=== PATIENT | female | born 2000 | race Caucasian/White ===

== ENCOUNTER 2020-08-28 22:12 | Emergency (ER) | payer OTHER ==
[~2020-08-28] VITALS: Ht 170.2 cm; Wt 75.1 kg
[2020-08-28] MEDS ORDERED: KETOROLAC TROMETHAMINE 10 MG TAB PO ONE (23:00)
[2020-08-28] MEDS ORDERED: ONDANSETRON 4 MG ORAL DISINTEGRATING TAB PO ONE (23:00)
--- NOTE | 2020-08-28 23:08 | REPVR ---
PROCEDURE INFORMATION: Exam: CT Cervical Spine Without Contrast Exam date and time: 08/28/2020 10:46 PM Age: 19 years old Clinical indication: Injury or trauma; Fall; Blunt trauma; Additional info: Head injury TECHNIQUE: Imaging protocol: Computed tomography images of the cervical spine without contrast. Radiation optimization: All CT scans at this facility use at least one of these dose optimization techniques: automated exposure control; mA and/or kV adjustment per patient size (includes targeted exams where dose is matched to clinical indication); or iterative reconstruction. COMPARISON: No relevant prior studies available. FINDINGS: Bones/joints: Mild levoconvex curvature. Vertebral body height and AP alignment is preserved. No acute cervical spine fracture. Discs/Spinal canal/Neural foramina: No definite significant central canal stenosis within limitations of technique. Thyroid: Heterogeneous thyroid gland. Lungs: Lung apices are normal. Pleural space: No visible pneumothorax. Soft tissues: Unremarkable. IMPRESSION: No acute cervical spine fracture. Electronically signed by: Jerome Larry On 08/28/2020 23:07:58 PM
--- NOTE | 2020-08-28 23:09 | REPVR ---
PROCEDURE INFORMATION: Exam: CT Head Without Contrast Exam date and time: 08/28/2020 10:46 PM Age: 19 years old Clinical indication: Injury or trauma; Fall; Concussion/head injury; Consciousness not specified TECHNIQUE: Imaging protocol: Computed tomography of the head without contrast. Radiation optimization: All CT scans at this facility use at least one of these dose optimization techniques: automated exposure control; mA and/or kV adjustment per patient size (includes targeted exams where dose is matched to clinical indication); or iterative reconstruction. COMPARISON: No relevant prior studies available. FINDINGS: Brain: Normal. No hemorrhage. Unremarkable white matter. No mass effect. Cerebral ventricles: No ventriculomegaly. Bones/joints: Unremarkable. No acute fracture. Paranasal sinuses: Mild paranasal sinus disease. Mastoid air cells: Mild partial opacification of the right mastoid air cells. Soft tissues: Unremarkable. IMPRESSION: No acute intracranial abnormality. Electronically signed by: Jerome Larry On 08/28/2020 23:09:41 PM
--- NOTE | 2020-08-29 00:02 | REPVR ---
PROCEDURE INFORMATION: Exam: XR Right Hip with Pelvis when Performed Exam date and time: 08/28/2020 11:52 PM Age: 19 years old Clinical indication: Hip pain; Right hip; Additional info: Fell skiing TECHNIQUE: Imaging protocol: XR Right hip with pelvis when performed. Views: 2 or 3 views. COMPARISON: No relevant prior studies available. FINDINGS: Bones/joints: Unremarkable. No acute fracture. Soft tissues: Unremarkable. IMPRESSION: No acute findings. Electronically signed by: Jerome Larry On 08/29/2020 00:02:00 AM
[2020-08-29 00:33] VITALS: BP 117/69
== END 2020-08-29 00:38 | disposition home or self-care (01) ==
LOC: M ED 22:12
DX: S06.0X0A Concussion without loss of consciousness, initial encounter (principal); V00.321A Fall from snow-skis, initial encounter; Y92.89 Other specified places as the place of occurrence of the external cause; Y93.23 Activity, snow (alpine) (downhill) skiing, snowboarding, sledding, tobogganing and snow tubing; Y99.8 Other external cause status; M54.2 Cervicalgia; M25.551 Pain in right hip
CPT/HCPCS: 70450; 72125; 73502; 99283; Q0162

== ENCOUNTER 2020-10-04 16:31 | Emergency (ER) | payer OTHER ==
[~2020-10-04] VITALS: Ht 170.2 cm; Wt 75.8 kg
[2020-10-04 16:32] VITALS: BP 125/86
[2020-10-04] MEDS ORDERED: valACYclovir HCL 500 MG TAB PO ONE (17:30)
[2020-10-04] MEDS ORDERED: VALT1TAB PO (17:31)
== END 2020-10-04 17:44 | disposition home or self-care (01) ==
LOC: M ED 16:31
DX: A60.09 Herpesviral infection of other urogenital tract (principal); Z91.040 Latex allergy status

== ENCOUNTER 2020-12-29 12:27 | Emergency (ER) | payer OTHER ==
[~2020-12-29] VITALS: Ht 170.2 cm; Wt 73.2 kg
[~2020-12-29 12:27] MED LIST: VALT1TAB PO
[2020-12-29 13:14] LABS: HEMATOCRIT 42.5 % (36.0-47.0); HEMOGLOBIN 14.2 g/dl (12.0-15.5); MEAN CORPUSCULAR HEMOGLOBIN 30.3 pg (27.0-33.0); MEAN CORPUSCULAR HGB CONC 33.4 g/dl (32.0-36.5); MEAN CORPUSCULAR VOLUME 90.6 fl (80.0-96.0); PLATELET COUNT, AUTOMATED 225 10^3/uL (150-450); RED BLOOD COUNT 4.69 10^6/uL (4.00-5.40); WHITE BLOOD COUNT 14.9 10^3/uL (4.0-10.0)
[2020-12-29] MEDS ORDERED: SPIR100T3 PO (13:22)
[2020-12-29] MEDS ORDERED: KETOROLAC 30 MG/ML 1ML VIAL IV ONE (14:10)
[2020-12-29] MEDS ORDERED: NS 1,000 ML IV ONE (14:10)
[2020-12-29 14:33] LABS: ALBUMIN 3.6 GM/DL (3.2-5.2); BILIRUBIN,DIRECT 0.3 MG/DL (0.0-0.2); BILIRUBIN,TOTAL 1.5 MG/DL (0.2-1.0)
[2020-12-29] MEDS ORDERED: ZOFR4TAB16 PO (15:47)
[2020-12-29 16:08] VITALS: BP 128/72
== END 2020-12-29 16:09 | disposition home or self-care (01) ==
LOC: EDBD 12:27 → M ED 12:27
DX: E86.0 Dehydration (principal); J02.9 Acute pharyngitis, unspecified; T50.Z95A Adverse effect of other vaccines and biological substances, initial encounter; X58.XXXA Exposure to other specified factors, initial encounter; Y92.89 Other specified places as the place of occurrence of the external cause; Z91.040 Latex allergy status
CPT/HCPCS: 80047; 80076; 81001; 83690; 84702; 85027; 87086; 87798; 96361; 96374; 99284; J1885

== ENCOUNTER 2021-05-04 09:46 | Emergency (ER) | payer OTHER ==
[~2021-05-04] VITALS: Ht 167.6 cm; Wt 77.3 kg
[~2021-05-04 09:46] MED LIST changes: +SPIR100T3 PO; +ZOFR4TAB16 PO
[2021-05-04] MEDS ORDERED: ONDANSETRON 4MG/2ML VIAL IV ONE (12:35)
[2021-05-04] MEDS ORDERED: KETOROLAC 30 MG/ML 1ML VIAL IV ONE (12:35)
[2021-05-04] MEDS ORDERED: NS 1,000 ML IV ONE (12:35)
[2021-05-04 13:15] LABS: BASO % 0.3 % (0.0-1.0); EOS % 0.3 % (0.0-3.0); HEMATOCRIT 40.6 % (36.0-47.0); HEMOGLOBIN 14.1 g/dl (12.0-15.5); LYMPH # 1.1 10^3/uL (1.5-5.0); LYMPH % 10.4 % (24.0-44.0); MEAN CORPUSCULAR HEMOGLOBIN 30.5 pg (27.0-33.0); MEAN CORPUSCULAR HGB CONC 34.7 g/dl (32.0-36.5); MEAN CORPUSCULAR VOLUME 87.7 fl (80.0-96.0); MONO # 0.5 10^3/uL (0.0-0.8); NEUTROPHILS # 8.7 10^3/uL (1.5-8.5); NEUTROPHILS % 83.6 % (36.0-66.0); PLATELET COUNT, AUTOMATED 303 10^3/uL (150-450); RED BLOOD COUNT 4.63 10^6/uL (4.00-5.40); WHITE BLOOD COUNT 10.5 10^3/uL (4.0-10.0)
[2021-05-04] MEDS ORDERED: ISOVUE-370 76% 100ML VIAL As Ordered ONE (13:35)
[2021-05-04 13:37] LABS: ALBUMIN 4.2 GM/DL (3.2-5.2); BILIRUBIN,DIRECT 0.3 MG/DL (0.0-0.2); BILIRUBIN,TOTAL 1.6 MG/DL (0.2-1.0); TOTAL PROTEIN 7.4 GM/DL (6.4-8.2)
--- NOTE | 2021-05-04 14:02 | REP ---
INDICATION: rlq pain. COMPARISON: None TECHNIQUE: Axial contrast-enhanced images from the lung bases to the pubic symphysis using 100 cc Isovue 370 intravenous contrast material. Coronal and sagittal reformations obtained. This CT examination was performed using the following dose reduction techniques: Automated exposure control, adjustment of mA and/or kv according to the patient's size, and the use of iterative reconstruction technique. FINDINGS: Liver, spleen, pancreas, gallbladder, bilateral adrenal glands and kidneys are normal. The enteric system including stomach, small, and large bowel appears normal. No evidence for obstruction or acute inflammatory process. Normal terminal ileum and appendix are identified in the right lower quadrant. Few mildly prominent lymph nodes in the right lower quadrant suggest the possibility of mesenteric adenitis. Pelvis demonstrates normal bladder and age-appropriate prostate/seminal vesicles. No ascites. No free air. No intraperitoneal or retroperitoneal adenopathy. Abdominal aorta and vasculature appear normal. Musculoskeletal structures are intact and without acute osseous abnormality. IMPRESSION: 1. Normal cecum, terminal ileum and appendix. 2. Few mildly prominent lymph nodes in the right lower quadrant suggest the possibility of mesenteric adenitis. 3. Otherwise normal CT of the abdomen and pelvis. <Electronically signed by Pablo Burgos > 05/04/21 [id number]
[2021-05-04] MEDS ORDERED: ONDA4TAB6 PO (14:11)
[2021-05-04 14:30] VITALS: BP 116/60
== END 2021-05-04 14:40 | disposition home or self-care (01) ==
LOC: M ED 09:46 → EDBD 09:46 → M ED 14:40
DX: I88.0 Nonspecific mesenteric lymphadenitis (principal); Z91.040 Latex allergy status
CPT/HCPCS: 74177; 80047; 80076; 81001; 83690; 84702; 85025; 96361; 96374; 96375; 99284; J1885; J2405; Q9967

== ENCOUNTER → 2022-12-14 | Outpatient (CLI) | payer OTHER ==
[~2022-12-14] MED LIST changes: +ONDA4TAB6 PO
[2022-12-14 10:33] LABS: BASO % 0.6 % (0.0-1.0); EOS # 0.2 10^3/uL (0.0-0.5); EOS % 2.2 % (0.0-3.0); HEMATOCRIT 41.6 % (36.0-47.0); HEMOGLOBIN 13.9 g/dl (12.0-15.5); LYMPH # 1.4 10^3/uL (1.5-5.0); LYMPH % 20.9 % (24.0-44.0); MEAN CORPUSCULAR HEMOGLOBIN 30.1 pg (27.0-33.0); MEAN CORPUSCULAR HGB CONC 33.4 g/dl (32.0-36.5); MONO # 0.5 10^3/uL (0.0-0.8); MONO % 7.3 % (2.0-8.0); NEUTROPHILS # 4.7 10^3/uL (1.5-8.5); PLATELET COUNT, AUTOMATED 327 10^3/uL (150-450); RED BLOOD COUNT 4.62 10^6/uL (4.00-5.40); WHITE BLOOD COUNT 6.9 10^3/uL (4.0-10.0)
[2022-12-14 10:51] LABS: ERYTHROCYTE SEDIMENTATION RATE < 1 mm/hr (0-20)
[2022-12-14 10:57] LABS: C REACTIVE PROTEIN QUANTITATIV < 0.40 MG/DL (<1.0)
[2022-12-14 10:58] LABS: ALBUMIN 4.3 G/DL (3.2-5.2); ALKALINE PHOSPHATASE 59 U/L (46-116); ALT/SGPT 19 U/L (7.0-40); AST/SGOT 16 U/L (<34); BILIRUBIN,DIRECT 0.5 MG/DL (<0.4); BILIRUBIN,TOTAL 1.5 MG/DL (0.3-1.2); BLOOD UREA NITROGEN 11 MG/DL (9-23); CREATININE FOR GFR 1.05 MG/DL (0.55-1.30); GLOMERULAR FILTRATION RATE > 60.0 (>60); IRON (FE) 107 UG/DL (50-170); TOTAL IRON BINDING CAPACITY 297 UG/DL (250-425); TOTAL PROTEIN 7.3 G/DL (5.7-8.2)
== END ==
LOC: M LAB 09:56
PROVIDERS: ATTEND Internal Medicine Gastroenterology
DX: K58.9 Irritable bowel syndrome, unspecified (principal)

== ENCOUNTER → 2023-01-31 | Outpatient (CLI) | payer OTHER ==
[~2023-01-31] MED LIST changes: +METHACHOLINE KIT INH ONE
== END ==
LOC: M CARPUL 09:50
PROVIDERS: ATTEND Nurse Practitioner Family
DX: R06.02 Shortness of breath (principal)
CPT/HCPCS: 94070; J7674